=== PATIENT | male | born 1935 | race Caucasian/White ===

== ENCOUNTER 2018-05-28 00:52 | Emergency (ER) | payer MEDICARE ==
[~2018-05-28] VITALS: Ht 170.2 cm; Wt 77.1 kg
[~2018-05-28 00:52] MED LIST: ACET325 PO; ALBU.083IS IH; ALBU3IS INH; ALPR1 PO; ASPI81CH PO; CEPH500 PO; DIGO.125 PO; DIGO.25 PO; DOCU100 PO; FERR325 PO; FLUO.1OPSU OD; FURO20 PO; HYDACE5 PO; ISOMON30 PO; METO100 PO; METO100ER PO; METO50ER PO; OMEP20ER PO; SAW PALMETTO; SIMV80 PO; TAMS.4ER PO; TIOT18 IH; VALS80 PO; WARF4 PO
[2018-05-28 01:22] LABS: BASOPHILS ABSOLUTE AUTO 0.03 K/mm3 (0.00-0.23); BASOPHILS PERCENT AUTO 0 % (0-2); EOSINOPHILS ABSOLUTE AUTO 0.09 K/mm3 (0.00-0.68); EOSINOPHILS PERCENT AUTO 1 % (0-6); Hematocrit 38.5 % (37.0-53.0); Hemoglobin 12.4 g/dL (13.5-17.5); IMMATURE GRAN ABSOLUTE AUTO 0.12 K/mm3 (0.00-0.10); IMMATURE GRAN PERCENT AUTO 1 % (0-1); LYMPHOCYTES ABSOLUTE AUTO 0.99 K/mm3 (0.84-5.20); LYMPHOCYTES PERCENT AUTO 10 % (21-46); MONOCYTES PERCENT AUTO 14 % (4-13); Mean Corpuscular HGB 31.2 pg (26.0-34.0); Mean Corpuscular HGB Conc 32.2 g/dL (31.5-36.5); Mean Corpuscular Volume 97 fL (80-100); Mean Platelet Volume 9.9 fL (9.1-12.4); NEUTROPHILS ABSOLUTE AUTO 7.14 K/mm3 (1.96-9.15); NEUTROPHILS PERCENT AUTO 73 % (41-73); Platelet Count 208 K/mm3 (150-400); RDW Coefficient Variation 14.7 % (11.7-14.2); Red Blood Cell Count 3.98 M/mm3 (4.30-5.90); White Blood Cell Count 9.77 K/mm3 (4.00-11.30)
[2018-05-28 01:33] LABS: Alanine Aminotransfer (ALT/SGP 11 U/L (12-78); Albumin, Blood 3.5 g/dL (3.4-5.0); Albumin/Globulin Ratio 0.9 (0.8-1.8); Alk Phos 65 U/L (50-136); Anion Gap 6 mmol/L (6-16); Aspartate Aminotrans (AST/SGOT 13 U/L (12-37); Bilirubin, Total 1.7 mg/dL (0.1-1.0); Blood Urea Nitrogen 11 mg/dL (8-24); Bun/Creatinine Ratio 15.1 (12.0-20.0); CO2, Blood 35 mmol/L (21-32); Calcium, Blood 8.1 mg/dL (8.5-10.1); Chloride, Blood 91 mmol/L (98-108); Creatinine, Blood 0.73 mg/dL (0.60-1.20); Globulin, Blood 4.1 g/dL (2.2-4.0); Glomerular Filtration Rate >60 (60-); Glucose, Blood 114 mg/dL (70-99); Potassium, Blood 4.1 mmol/L (3.5-5.5); Sodium, Blood 132 mmol/L (136-145); Total Protein, Blood 7.6 g/dL (6.4-8.2); Troponin I 0.035 ng/mL (0.000-0.040)
[2018-05-28 03:01] LABS: Influenza A Negative (NEGATIVE); Influenza B Negative (NEGATIVE)
[2018-05-28] MEDS ORDERED: Prednisone20 MG PO (03:09)
[2018-05-28] MEDS ORDERED: LISI20 PO (09:45)
[2018-05-28] MEDS ORDERED: ATOR20 PO (09:46)
[2018-05-28] MEDS ORDERED: BUDE6HFA INH (09:47)
[2018-05-28] MEDS ORDERED: SPIRIVA RESPIMAT4 GM IH (09:47)
[2018-05-28] MEDS ORDERED: FINA5 PO (09:47)
[2018-05-28] MEDS ORDERED: CARV6.25 PO (12:54)
[2018-05-28] MEDS ORDERED: FURO40 PO (12:55)
[2018-05-28] MEDS ORDERED: WARF5 PO (12:56)
[2018-05-28] MEDS ORDERED: POTCHL20ER PO (12:57)
[2018-05-28] MEDS ORDERED: MAGCHL64ER PO (12:58)
[2018-05-28] MEDS ORDERED: FOLBIC RF TABL1 EACH PO (12:59)
[2018-05-28] MEDS ORDERED: CYAN500 PO (12:59)
[2018-05-28] MEDS ORDERED: ASCO500 PO (13:00)
[2018-05-28] MEDS ORDERED: CHOL10002 PO (13:00)
[2018-05-28] MEDS ORDERED: Fergon240 M1 PO (14:54)
[2018-05-28] MEDS ORDERED: Omega 3 1,0001 EACH PO (14:55)
[2018-05-28] MEDS ORDERED: MAGOXI400 PO (14:56)
[2018-05-28] MEDS ORDERED: PREDNISOLONE ACE5 ML LEFTEYE (14:58)
[2018-05-28] MEDS ORDERED: SILD25T PO (14:59)
== END 2018-05-28 03:20 | disposition home or self-care (01) ==
LOC: ER 00:52
PROVIDERS: Emergency Medicine
DX: J44.1 Chronic obstructive pulmonary disease with (acute) exacerbation (principal); I48.91 Unspecified atrial fibrillation; I50.9 Heart failure, unspecified; Z79.899 Other long term (current) drug therapy
CPT/HCPCS: 71046; 80053; 83880; 84484; 85025; 87804; 93005; 93010; 94640; 99284-25

== ENCOUNTER 2018-05-28 07:26 | Inpatient (IN) | payer MEDICARE ==
[~2018-05-28] VITALS: Ht 175.3 cm; Wt 76.3 kg
[~2018-05-28 07:26] MED LIST changes: +Prednisone20 MG PO
[2018-05-28 09:20] LABS: Troponin I 0.016 ng/mL (0.000-0.040)
[2018-05-28] MEDS ORDERED: LISI20 PO (09:45)
[2018-05-28] MEDS ORDERED: ATOR20 PO (09:46)
[2018-05-28] MEDS ORDERED: FINA5 PO (09:47)
[2018-05-28] MEDS ORDERED: SPIRIVA RESPIMAT4 GM IH (09:47)
[2018-05-28] MEDS ORDERED: BUDE6HFA INH (09:47)
--- NOTE | 2018-05-28 11:08 | NUR ---
Echocardiogram completed.
--- NOTE | 2018-05-28 12:30 | NUR ---
PT TO ROOM. H/R IRREG. HX AFIB. LUNGS DIM T.O. BT X4, PT TALKING 4 WORD PLUS SENTENCES. RELAXED NO DISTRESS NOTED. PLEASANT A/O. ORIENTED TO ROOM. BED IN LOW POSITION, CALL LITE IN REACH, CALLS APPROP
[2018-05-28] MEDS ORDERED: CARV6.25 PO (12:54)
[2018-05-28] MEDS ORDERED: FURO40 PO (12:55)
[2018-05-28] MEDS ORDERED: WARF5 PO (12:56)
[2018-05-28] MEDS ORDERED: POTCHL20ER PO (12:57)
[2018-05-28] MEDS ORDERED: MAGCHL64ER PO (12:58)
[2018-05-28] MEDS ORDERED: FOLBIC RF TABL1 EACH PO (12:59)
[2018-05-28] MEDS ORDERED: CYAN500 PO (12:59)
[2018-05-28] MEDS ORDERED: CHOL10002 PO (13:00)
[2018-05-28] MEDS ORDERED: ASCO500 PO (13:00)
[2018-05-28] MEDS ORDERED: Fergon240 M1 PO (14:54)
[2018-05-28] MEDS ORDERED: Omega 3 1,0001 EACH PO (14:55)
[2018-05-28] MEDS ORDERED: MAGOXI400 PO (14:56)
[2018-05-28] MEDS ORDERED: PREDNISOLONE ACE5 ML LEFTEYE (14:58)
[2018-05-28] MEDS ORDERED: SILD25T PO (14:59)
[2018-05-28 15:53] LABS: International Normalized Ratio 2.04; Prothrombin Time Results 20.3 Sec (9.7-11.5)
--- NOTE | 2018-05-28 18:01 | NUR ---
JAVIER CALLED FROM LAB. FULLY COAGULATED. MAGO BACON. CALLED DR MORENO. Danica BACON
--- NOTE | 2018-05-28 18:38 | NUR ---
PT PLEASANT TODAY. STATES NOT FEELING OUR BREATHING TX GOOD HIS HOME MEDS. RESP EASY, 4+ WORD SENTENCES. ON 3L 02. NO REPORTS OF PAIN. BLOWS OUT LIPS REGULARLY FOR BREATHING. SITTING ON EDGE OF BED. AMBULATES SELF TO BSC NO ASST. NO OTHER CONCERNS AT THIS TIME. BED IN LOW POSITION, CALL LITE IN REACH, CALLS APPROP
--- NOTE | 2018-05-29 05:14 | NUR ---
SHIFT SUMMARY PT ALERT AND ORIENTED. VS STABLE. O2 SATS >92% ON 3L VIA NC. PT COOPERATIVE WITH CARE. PT COMPLAINS OF HEADACHE AT MIDDLE OF SHIFT THAT WAS RELIEVED WITH TYLENOL. NO OTHER CHANGES SINCE INITIAL ASSESSMENT. CALL LIGHT IN REACH. WILL CONTINUE TO MONITOR AND REPORT TO ONCOMING RN.
--- NOTE | 2018-05-29 13:09 | NUR ---
REPORT CALLED TO JANET OZUNA TO TRANSFER PT TO [phone]
[2018-05-29 13:18] LABS: International Normalized Ratio 3.35; Prothrombin Time Results 31.8 Sec (9.7-11.5)
--- NOTE | 2018-05-29 15:47 | NUR ---
*LATE ENTRY* 1330 PT TRANSFERED TO MEDICAL FLOOR RECIEVED REPORT FROM PCU. PER REPORT PT HERE FOR RESP FAILURE AND IS FREQUENTLY ADMITTED FOR THIS ISSUE. PT HAS EDEMA IN BLE CHRONICALLY. PT IV IS SL ON ARRIVAL. PT ON 2.5L O2 VIA NC HOME DOSE IS 2L. WHEN PT ARRIVED HE STATED HE IS HAVING TROUBLE BREATHING, CONTACTED RT AND REQUESTED A BREATHING TREATMENT, DARRION FROM RT CAME UP AND PROVIDED A TREATMENT.
--- NOTE | 2018-05-29 18:49 | NUR ---
SHIFT SUMMARY- PT HAS HAD NO ACUTE CHANGES SINCE ARRIVAL ON MEDICAL FLOOR. PT HERE FOR COPD EXACERBATION. ONE C/O PAIN IN HIS RIGHT CHEST, PT REQUESTED MAYLOXX FOR THIS, ADMINISTERED, PT STATED THE PAIN WAS GONE AFTER THAT. PT SITTING AT THE EOB WITH THE CALL LIGHT IN REACH, WILL COMPLETE BEDSIDE REPORT WHEN NIGHT RN ARRIVES.
[2018-05-30 04:54] LABS: Hematocrit 38.4 % (37.0-53.0); Hemoglobin 12.5 g/dL (13.5-17.5); Mean Corpuscular HGB Conc 32.6 g/dL (31.5-36.5); Mean Corpuscular Volume 95 fL (80-100); Mean Platelet Volume 9.6 fL (9.1-12.4); Platelet Count 235 K/mm3 (150-400); RDW Coefficient Variation 14.6 % (11.7-14.2); RDW Standard Deviation 51.8 fL (35.1-46.3); Red Blood Cell Count 4.03 M/mm3 (4.30-5.90); White Blood Cell Count 15.33 K/mm3 (4.00-11.30)
--- NOTE | 2018-05-30 05:06 | NUR ---
VSS, AFEBRILE, A/O BUT VERY ANXIOUS, TELE: A-FIB, BBB, PVC'S, 2.5L NC, 18G L FA, 1 PA TO BS, WHEEZES/CRACKLES, PMHX: CHF, A-FIB, COPD. HE SLEPT FITFULLY FOR SHORT PERIODS OF TIME, VERY ANXIOUS, REQUESTING FREQUENT VS, INSISTING THAT HE IS MUCH WORSE THAN HE APPEARS TO BE, SOMEWHAT OFFENDED THAT HE IS NOT GETTING MORE ATTENTION. HALDOL x 1 WAS INEFFECTIVE. MIGHT BENEFIT FROM A BNP IF MD AGREES.
[2018-05-30 05:08] LABS: International Normalized Ratio 3.12; Prothrombin Time Results 29.8 Sec (9.7-11.5)
[2018-05-30 05:38] LABS: Anion Gap 7 mmol/L (6-16); Blood Urea Nitrogen 18 mg/dL (8-24); Bun/Creatinine Ratio 29.4 (12.0-20.0); CO2, Blood 33 mmol/L (21-32); Calcium, Blood 8.1 mg/dL (8.5-10.1); Chloride, Blood 85 mmol/L (98-108); Creatinine, Blood 0.61 mg/dL (0.60-1.20); Glomerular Filtration Rate >60 (60-); Glucose, Blood 128 mg/dL (70-99); Potassium, Blood 4.8 mmol/L (3.5-5.5); Sodium, Blood 125 mmol/L (136-145)
[2018-05-30 08:20] LABS: Source, Urine Catheter
[2018-05-30 08:47] LABS: Bilirubin, Urine Neg (Neg); Blood, Urine Neg (Neg); Glucose Qualitative, Urine Neg (Neg); Ketones, Urine Neg (Neg); Leukocyte Esterase, Urine Neg (Neg); Nitrite, Urine Neg (Neg); Protein, Urine Neg (Neg); Specific Gravity, Urine 1.015 (1.003-1.022); Urobilinogen, Urine NORM (Normal); pH, Urine 6.5 (5.0-8.0)
[2018-05-30 08:57] LABS: Appearance, Urine Clear (Clear); Color, Urine Yellow (P-Yellow)
--- NOTE | 2018-05-30 11:08 | NUR ---
NOTIFIED OF ELEVATED B/P AND HEADACHE. PLACED NEW ORDERS. MEDICATED PER EMAR. WILL RECHECK BP AND CTM.
--- NOTE | 2018-05-30 12:59 | NUR ---
REQ R/T TO ROOM FOR PRN BREATHING TREATMENT AND ABD DRAW.
--- NOTE | 2018-05-30 13:05 | NUR ---
TRANSFER SUMMARY: REPORT CALLED TO SHRUTHI GONZALES IN PCU. B/P HAS BEEN DIFFICULT TO CONTROL WITH IMPROVEMENT AFTER HYDRALAZINE GIVEN. RESP CONT TO INCREASE WITH ACCESSORY MUSCLE USE. AFTER 2 DOSES OF LASIX BLADDER SCAN IS 156; HE DENIES THE URGE TO URINATE. BLE ARE NOW COLD TO THE TOUCH WITH POOR PROFUSION. CONSULT CALLED TO . FAMILY NOTIFIED OF ROOM TRANSFER.
[2018-05-30 13:19] LABS: PCO2 Arterial 65.3 mmHg (35-45); PO2 Arterial 78.5 mmHg (80-100); pH Blood Arterial 7.34 (7.35-7.45)
[2018-05-30 15:59] LABS: Uric Acid, Blood 4.2 mg/dL (3.5-7.2)
[2018-05-30 16:00] LABS: Anion Gap 5 mmol/L (6-16); Blood Urea Nitrogen 24 mg/dL (8-24); Bun/Creatinine Ratio 34.8 (12.0-20.0); CO2, Blood 36 mmol/L (21-32); Calcium, Blood 8.4 mg/dL (8.5-10.1); Chloride, Blood 83 mmol/L (98-108); Creatinine, Blood 0.69 mg/dL (0.60-1.20); Glomerular Filtration Rate >60 (60-); Glucose, Blood 154 mg/dL (70-99); Potassium, Blood 5.7 mmol/L (3.5-5.5); Sodium, Blood 124 mmol/L (136-145)
--- NOTE | 2018-05-30 16:24 | NUR ---
Spiritual care visit conducted. I provided companionship, emotional support and prayer. Patient and family engaged well and verbalized appreciation. Patient displayed evidence of stabilization.
--- NOTE | 2018-05-30 17:11 | NUR ---
Dayana Yecenia was very appreciaitive of prayer and spiritual encouragement. He was working hard to breathe at time of visit. Therefore lengthy conversation impossible. I will remain available.
--- NOTE | 2018-05-30 19:54 | NUR ---
Shift Summary Pt transferred to unit at approx 1510. VSS. Mild resp distress. Dr. Ferguson at bedside - placed orders. Fields placed. Pt is A&Ox4. Calls appropriately. Notified Dr. Escudero of continued resp difficulty post completed orders by Dr. Ferguson and received order for BiPAP, which was placed by RT. Pt tolerating BiPAP well. Currently sitting up in chair with call light within reach. Denies any further questions, complaints or requests at this time. Report given to noc shift RN.
[2018-05-31 04:34] LABS: Hematocrit 38.9 % (37.0-53.0); Hemoglobin 12.5 g/dL (13.5-17.5); Mean Corpuscular HGB Conc 32.1 g/dL (31.5-36.5); Mean Corpuscular Volume 97 fL (80-100); Mean Platelet Volume 9.9 fL (9.1-12.4); Platelet Count 239 K/mm3 (150-400); RDW Standard Deviation 53.6 fL (35.1-46.3); Red Blood Cell Count 4.03 M/mm3 (4.30-5.90); White Blood Cell Count 13.89 K/mm3 (4.00-11.30)
[2018-05-31 04:51] LABS: International Normalized Ratio 2.68
[2018-05-31 04:59] LABS: Albumin, Blood 3.6 g/dL (3.4-5.0); Anion Gap 5 mmol/L (6-16); Blood Urea Nitrogen 36 mg/dL (8-24); Bun/Creatinine Ratio 43.5 (12.0-20.0); CO2, Blood 35 mmol/L (21-32); Calcium, Blood 8.2 mg/dL (8.5-10.1); Chloride, Blood 86 mmol/L (98-108); Creatinine, Blood 0.83 mg/dL (0.60-1.20); Glomerular Filtration Rate >60 (60-); Glucose, Blood 132 mg/dL (70-99); Magnesium, Blood 2.4 mg/dL (1.6-2.4); Phosphorus, Blood 4.6 mg/dL (2.5-4.9); Potassium, Blood 5.6 mmol/L (3.5-5.5); Sodium, Blood 126 mmol/L (136-145)
[2018-05-31 05:06] LABS: Thyroid Stimulating Hormone 0.585 uIU/mL (0.360-4.800)
--- NOTE | 2018-05-31 05:08 | NUR ---
ASSUMED CARE OF PATIENT AT APPROXIMATELY 1900 FROM TIFFANIE Grande RN. PATIENT ALERT AND ORIENTED TO SELF AND FAMILY. PATIENT LETHARGIC AT TIMES; OPENING EYES TO VERBAL STIMULUS OCCASIONALLY; MOANS OCCASIONALLY. CONFUSED; WAKES TO STATE THAT HE "LOST COUNT" OF HIS RESPIRATIONS. PATIENT DENIES PAIN, NUMBNESS, TINGLING, DIZZINESS AND NAUSEA. PATIENT IS WEAK; 1-2 ASSIST W/ FWW. PATIENT APPEARS UNCOMFORTABLE; SWITCHES BETWEEN RECLINER AND BED. PATIENT NEEDED TO WEAR BIPAP; PATIENT HAS WORN BIPAP FOR APPROXIMATELY TWO HOURS LAST NIGHT. AFIB ON TELE WITH A RATE IN 100-110'S; OXYGEN SATURATION ABOVE 90% ON 2-3LPM VIA NC. PATIENT HAS URINARY CATHETER IN PLACE FOR RETENTION. PIV S/L. PATIENT CURRENTLY SLEEPING IN BED; CALL LIGHT IN REACH; BED IN LOWEST POSISTION; BED ALARM ON; WILL CONTINUE TO MONITOR AND ASSESS UNTIL END OF SHIFT.
--- NOTE | 2018-05-31 07:49 | NUR ---
0700 Dr. Santoro here; states the pt is "out of the sheppard"; ordered 24 hour urine and would like a call at 1200 for the update on I & O. At the time, the pt was not wearing bipap and audible very coarse moist breathing was noted from even a few paces away from the patient. 0750 The pt is lying in a recliner, wearing his bipap. Awakens easily when stimulated verbally. Occasionally opens eyes spontaneously. Respiratory rate 24; bipap settings are 12/5 with fio2 of 30%. He appears to be tolerating the bipap well at this time.
--- NOTE | 2018-05-31 11:44 | NUR ---
Den is still lethargic this morning. He wakes up to stimulation, but falls asleep very quickly and makes almost no conversation except brief responses to my questions. He does answer appropriately. He is wearing the bipap right now.
--- NOTE | 2018-05-31 19:23 | NUR ---
Den was lethargic and seemed confused this morning. After wearing the bipap he was awake enough to take his pills while sitting up in the chair. He wore the bipap for about a total of 4-5 hours today, in 3-4 different periods of time. After wearing the bipap this morning and noontime, he was awake enough to sit on the side of the bed and eat some lunch. Took another nap with bipap on this afternoon for about 2 hours, and was awake for dinner, again which he ate dangling on the side of the bed. Lung sounds remain coarse, sometimes with gurgling moist sounds in his throat when he is sleepy. At those times his cough is ineffective and too weak to clear them. Urine output was less than 1000cc via berkowitz catheter.
[2018-06-01 04:11] LABS: Hematocrit 37.9 % (37.0-53.0); Hemoglobin 12.1 g/dL (13.5-17.5)
[2018-06-01 04:22] LABS: International Normalized Ratio 2.68
[2018-06-01 04:36] LABS: Albumin, Blood 3.3 g/dL (3.4-5.0); Anion Gap 4 mmol/L (6-16); Blood Urea Nitrogen 60 mg/dL (8-24); Bun/Creatinine Ratio 55.6 (12.0-20.0); CO2, Blood 37 mmol/L (21-32); Calcium, Blood 8.4 mg/dL (8.5-10.1); Chloride, Blood 88 mmol/L (98-108); Creatinine, Blood 1.08 mg/dL (0.60-1.20); Glomerular Filtration Rate >60 (60-); Glucose, Blood 144 mg/dL (70-99); Magnesium, Blood 2.4 mg/dL (1.6-2.4); Phosphorus, Blood 4.1 mg/dL (2.5-4.9); Potassium, Blood 5.5 mmol/L (3.5-5.5); Sodium, Blood 129 mmol/L (136-145)
--- NOTE | 2018-06-01 05:42 | NUR ---
SHIFT SUMMARY PT SLEEPING IN ROOM COMFORTABLY. PT HAS HAD SOME INCREASED CONFUSION T/O NIGHT. PER SHIFT CHANGE REPORT THIS IS BASELINE FOR PT. PT SLEPT OFF AND ON IN ROOM ON BIPAP. PT WAS UP AND DOWN IN BED TO SITTING ON SIDE OF BED APPROX EVERY HOUR. AT 0400 PT TOOK BREAK FROM BIPAP AND WENT ON 3L NC, SATS >94%. PT BECAME LETHARGIC, WAS ABLE TO ANSWER NAME AND . PLACED BACK ON BIPAP AND BACK IN BED. 24 HOUR URINE AT BEDSIDE TO END AT 0800 THIS AM. SKIN IS PWD. RESP EVEN UNLBAORED ON BIPAP AT 30% FIO2. DENIES PAIN. CALL LIGHT IS IN REACH. BED ALARM ON FOR SAFETY.
--- NOTE | 2018-06-01 09:59 | NUR ---
BEGINNING OF SHIFT Assumed care of pt at 0700. Bedside report received from Koki GONZALES. Dr Escudero in to see pt. Mentation discussed with provider. This RN in room for shift assessment. Low BP noted. Call placed to Dr Escudero. Discussed fluid overload and risk/benefit of IV fluids. No new orders. education instructor, Kathy, rosa. Will continue to closely monitor.
[2018-06-01 12:20] LABS: PCO2 Arterial 87 mmHg (35-45); PO2 Arterial 76.3 mmHg (80-100); pH Blood Arterial 7.25 (7.35-7.45)
--- NOTE | 2018-06-01 14:28 | NUR ---
UPDATE Pt has remained minimally responsive. No acute changes since shift assessment. BP stable. Pt wakes up enough to remove BiPAP. Pt required lift to get back in bed. Will continue to closely monitor.
[2018-06-01 15:14] LABS: PCO2 Arterial 84 mmHg (35-45); PO2 Arterial 87.1 mmHg (80-100); pH Blood Arterial 7.27 (7.35-7.45)
--- NOTE | 2018-06-01 15:27 | NUR ---
Initial Visit: Palliative Care Consult for goals of care. Pt resting in bed and appears lethargic and is on BIPAP. Assessment started and RT came in with needing to obtain STAT Blood Gas. Spoke with Pt's daughter in law and she reports the Pt's POA is his granddaughter Delia. Daughter in law reports that Delia is at work and will be in to visit as soon as she gets off work. Discussed prognosis with daughter in law and the importance to have discussion about Pt's care or end of life care. Pt minimally responsive during visit and will have F/U visit when family arrives. Spoke with Dr Escudero and he reports the Pt has a poor prognosis and end of life discussion would be appropriate. Spoke with Pt's nurse Ruby and she is in agreement for discussion. Plan to discuss code status and end of life care when family arrives. Will reamain available.
--- NOTE | 2018-06-01 17:32 | NUR ---
SHIFT SUMMARY Pt on comfort care this afternoon. Nelson and Xenia from palliative care met with the pt's granddaughter, who is the patient's decision maker. Dr Escudero also met with the pt's granddaughter to discuss plan of care prior to making pt comfort care. Pt resting with family at bedside at this time. Will contiune to closely monitor.
--- NOTE | 2018-06-01 17:51 | NUR ---
Mr. Keene is clearly loved by numerous family and large faith community. At time of visit, he was not responsive. Met with dtr and friend at bedside. Dtr teaful and distraught, insisting that her dtr is MPOA, and only she can make decisions on pt's behalf. Present when Grand-dtr, Delia arrived. She was tearful, but reasonable and appropriate. Nelson, palliative care RN had obtained pts AD from [place] stating no heroic measures. Pts decline and poor prognosis has been explained to present family memebers. Delia has decided to make pt Comfort Measures Only. More family to arrive this evening. Prayer for pt provided at bedside with family. Pt's advertising photographer notified. I will remain available.
--- NOTE | 2018-06-01 19:30 | NUR ---
ASSUMED CARED PT IS SLEEPING IN ROOM COMFORTABLY W/ FAMILY AT BEDSIDE. PT WAS MOVED TO COMFORT CARE TODAY PER DAY SHIFT RN. FAMILY HAS COMFORT CART IN ROOM AND REPORTS THEY FEEL PT IS COMFORTABLE AND RELAXED. PT APPEARS TO BE SLEEPING EASILY, AND LOOKS MORE RELAXED THAN YESTERDAY TO THIS RN. O2 IS IN VIA NC FOR COMFORT. PT RESP EVEN UNLABORED. CALL LIGHT IN REACH.
--- NOTE | 2018-06-01 23:50 | NUR ---
PT FAMILY WENT INTO ROOM AT APPROX 2340 TO VISIT WITH PT. THEY CALLED STAFF TO ROOM FOR PT APPEARING "NOT RIGHT" THIS RN WAS IN ANOTHER ROOM AND BARKEEPER SAYRA TO ROOM TO ASSESS PT. PT HAD IN ROOM. ROUNDING HAD BEEN DONE ON PT APPROX 30-40 MIN PRIOR AND PT WAS CALM AND COMFORTABLE, W/ RESP EVEN UNLBAORED AT RATE OF 20/MIN. FAMILY WAS NOTIFIED OF AND HOME HAS BEEN CONTACTED. FAMILY TO ROOM TO SEE PT.
--- NOTE | 2018-06-02 01:40 | NUR ---
HOME ARRIVED [facility] HAS ARRIVED TO TAKE PT. BELONGINGS WERE SENT HOME W/ FAMILY EXCEPT DENTURES, WHICH FAMILY WANTED TO BE SENT W/ PT. NO OTHER BELONGINGS LEFT IN ROOM. PT TAKEN BY HOME.
== END 2018-06-02 02:00 | DRG 190 ==
LOC: ER 07:26 → PCU 08:08 → MEDS 05-29 13:18 → PCU 05-30 14:58
PROVIDERS: Internal Medicine Nephrology; Pharmacist; ADMIT Internal Medicine
PROC: 5A09357 Assistance with Respiratory Ventilation, Less than 24 Consecutive Hours, Continuous Positive Airway Pressure (ICD-10-PCS; principal; 2018-05-30)
DX: J44.1 Chronic obstructive pulmonary disease with (acute) exacerbation (principal); I50.41 Acute combined systolic (congestive) and diastolic (congestive) heart failure; J96.21 Acute and chronic respiratory failure with hypoxia; G92 Toxic encephalopathy; J96.22 Acute and chronic respiratory failure with hypercapnia; E87.1 Hypo-osmolality and hyponatremia; Z51.5 Encounter for palliative care; Z99.81 Dependence on supplemental oxygen; I48.2 Chronic atrial fibrillation; K21.9 Gastro-esophageal reflux disease without esophagitis; N40.0 Benign prostatic hyperplasia without lower urinary tract symptoms; Z87.891 Personal history of nicotine dependence; R33.9 Retention of urine, unspecified; Z79.01 Long term (current) use of anticoagulants; N18.2 Chronic kidney disease, stage 2 (mild); E87.70 Fluid overload, unspecified; E87.5 Hyperkalemia; D63.1 Anemia in chronic kidney disease; Z66 Do not resuscitate
CPT/HCPCS: 36415; 36600; 51702; 71045; 71046; 80048; 80053; 80069; 81003; 82530; 82533; 82803; 83735; 83880; 84295; 84443; 84484; 84550; 85014; 85018; 85025; 85027; 85610; 87804; 93005; 93010; 93306; 94640; 94660; 94760; 94762; 96374; 99284-25; 99285-25; J0360; J1630; J1650; J1940; J2920; J2930